=== PATIENT | female | born 1990 | race Two or more races ===

== ENCOUNTER 2018-10-14 13:55 | Observation (INO) | payer MEDICAID ==
[2018-10-14] MEDS ORDERED: METF-370 PO (15:12)
[2018-10-14] MEDS ORDERED: NIF10C GT (15:12)
[2018-10-14] MEDS ORDERED: PREN-96 PO (15:12)
== END 2018-10-14 15:50 | disposition home or self-care (01) | DRG 566 ==
LOC: LDRP 13:55
PROVIDERS: ADMIT Specialist; ATTEND Specialist
DX: O62.9 Abnormality of forces of labor, unspecified (principal); Z3A.32 32 weeks gestation of pregnancy
CPT/HCPCS: 59025; 76818; 81002; 82948; 82962; G0378